=== PATIENT | female | born 1985 | race Caucasian/White ===

== ENCOUNTER 2017-01-24 14:20 | Inpatient (IN) | payer BC ==
[~2017-01-24] VITALS: Ht 165.1 cm; Wt 89.8 kg
[2017-01-24] MEDS ORDERED: ORTHO TRI-CYCL1 EACH PO (15:44)
[2017-01-24] MEDS ORDERED: MOTRIN IB200 MG PO (15:46)
[2017-01-24] MEDS ORDERED: TRINESSA LO TA1 EACH PO (16:39)
[2017-01-26] MEDS ORDERED: TYLENOL325 M1 PO (14:50)
[2017-01-26] MEDS ORDERED: LEVAQUIN750 MG PO (14:51)
== END 2017-01-26 18:30 | disposition short-term general hospital (02) | DRG 872 ==
LOC: ER 14:20 → IP 16:05
PROVIDERS: ADMIT Family Medicine
DX: A41.51 Sepsis due to Escherichia coli [E. coli] (principal); N10 Acute pyelonephritis; M19.90 Unspecified osteoarthritis, unspecified site; M54.9 Dorsalgia, unspecified; M25.512 Pain in left shoulder; R07.89 Other chest pain; B96.20 Unspecified Escherichia coli [E. coli] as the cause of diseases classified elsewhere
CPT/HCPCS: A9150; J1885; J1956; J2175; J2270; J2405; J2543